=== PATIENT | male | born 1985 | race American Indian/Alaskan Native ===

== ENCOUNTER 2018-07-22 22:30 | Emergency (ER) | payer OTHER | END 2018-07-22 23:52 | disposition left against medical advice (07) | LOC: ED 22:30 ==

== ENCOUNTER 2018-07-23 10:11 | Emergency (ER) | payer OTHER ==
[2018-07-23 10:20] VITALS: BP 126/76
[2018-07-23] MEDS ORDERED: TORADOL IM ONE (10:57)
--- NOTE | 2018-07-23 11:01 | Emergency Department Report ---
- General Chief complaint: Skin/Abscess/Foreign Body Stated complaint: ABSCESS Time Seen by Provider: 07/23/18 10:44 Source: patient Mode of arrival: Ambulatory Limitations: No Limitations - History of Present Illness Initial comments: Patient is 33 years old male with no significant past medical history. Patient is presented to the ER complaining two melissa anal abscess started 3 days ago. Patient denied any fever, chills, nausea or vomiting. He stated one of the abscesses or to start draining. MD complaint: abscess/boil -: days(s) (3 days) Location: buttocks Severity: moderate Severity scale (0 -10): 6 Treatments Prior to Arrival: none - Related Data Allergies Allergy/AdvReac Type Severity Reaction Status Date / Time No Known Allergies Allergy Unverified 07/22/18 23:10 Abscess Boil HPI - HPI Chief Complaint: Skin/Abscess/Foreign Body Stated Complaint: ABSCESS Time Seen by Provider: 07/23/18 10:44 Allergies/Adverse Reactions: Allergies Allergy/AdvReac Type Severity Reaction Status Date / Time No Known Allergies Allergy Unverified 07/22/18 23:10 ED Review of Systems ROS: Stated complaint: ABSCESS Other details as noted in HPI Comment: All other systems reviewed and negative Constitutional: denies: chills, fever Respiratory: denies: cough, orthopnea, shortness of breath Cardiovascular: denies: chest pain Gastrointestinal: denies: abdominal pain, nausea, vomiting, diarrhea, constipation, hematemesis Musculoskeletal: denies: back pain Neurological: denies: headache, weakness, numbness ED Past Medical Hx - Past Medical History Previous Medical History?: Yes Additional medical history: perectum abscess - Surgical History Past Surgical History?: No - Social History Smoking Status: Current Some Day Smoker Substance Use Type: None ED Physical Exam - General Limitations: No Limitations General appearance: alert, in no apparent distress - Head Head exam: Present: atraumatic, normocephalic, normal inspection - Eye Eye exam: Present: normal appearance - ENT ENT exam: Present: normal exam, normal orophraynx, mucous membranes moist - Neck Neck exam: Present: normal inspection - Respiratory Respiratory exam: Present: normal lung sounds bilaterally - Cardiovascular Cardiovascular Exam: Present: regular rate, normal rhythm, normal heart sounds - GI/Abdominal GI/Abdominal exam: Present: soft. Absent: tenderness, guarding, rebound - Rectal Rectal exam: Present: normal inspection, normal rectal tone. Absent: tenderness - Back Exam Back exam: Present: normal inspection. Absent: CVA tenderness (R) - Neurological Exam Neurological exam: Present: alert, oriented X3, CN II-XII intact - Skin Skin exam: Present: other (two melissa-anal abscesses, non-fluctuant, one with mild greenish discharge.) ED Course Vital Signs 07/23/18 10:17 Temperature 97.9 F Pulse Rate 73 Respiratory 20 Rate Blood Pressure 126/76 O2 Sat by Pulse 100 Oximetry ED Medical Decision Making - Medical Decision Making Abscesses is not ready to be I&D yet. I advised patient to do sitz bath. I started the patient on Bactrim and advised him to follow-up with his primary care physician and to return to the ER if her symptoms have not improved. Critical care attestation.: If time is entered above; I have spent that time in minutes in the direct care of this critically ill patient, excluding procedure time. ED Disposition Clinical Impression: Melissa-rectal abscess Disposition: DC- TO HOME OR SELFCARE Is pt being admited?: No Condition: Stable Instructions: Abscess (ED) Referrals: PRIMARY CARE, [Primary Care Provider] - 3-5 Days
== END 2018-07-23 12:41 | disposition home or self-care (01) ==
LOC: ED 10:11
DX: K61.1 Rectal abscess (principal); F17.200 Nicotine dependence, unspecified, uncomplicated
CPT/HCPCS: 96372; 99282; J1885

== ENCOUNTER 2018-09-11 11:55 | Emergency (ER) | payer BC, OTHER ==
--- NOTE | 2018-09-11 12:09 | Emergency Department Report ---
Chief Complaint: Chest Pain Stated Complaint: CHEST PAIN/LFT SIDE PAIN Time Seen by Provider: 09/11/18 12:05 - HPI History of Present Illness: Pt is c/o left sided CP that began 3 days ago pt does lift heavy objects at work, has increased doing push ups certain movements make it worse (+) mild SOB no radiation, no N/V no recent long car/plane rides, no recent surgery, no immobilization (+) smoker, (+) marijuana VSS MSE complete MSE screening note: Focused history and physical exam performed. Due to findings the following was ordered: CXR, EKG ED Disposition for MSE Condition: Stable
[2018-09-11 12:54] LABS: Basophils # (Auto) 0.1 K/mm3 (0.0-0.1); Basophils % (Auto) 0.8 % (0.0-1.8); Eosinophils # (Auto) 0.1 K/mm3 (0.0-0.4); Eosinophils % (Auto) 1.8 % (0.0-4.3); Hematocrit 42.3 % (35.5-45.6); Hemoglobin 14.3 gm/dl (11.8-15.2); Lymphocytes # (Auto) 2.8 K/mm3 (1.2-5.4); Lymphocytes % (Auto) 42.1 % (13.4-35.0); Mean Corpuscular HGB Conc 34 % (32-34); Mean Corpuscular Volume 90 fl (84-94); Monocytes # (Auto) 0.7 K/mm3 (0.0-0.8); Platelet Count 320 K/mm3 (140-440); Red Blood Count 4.73 M/mm3 (3.65-5.03); Red Cell Distribution Width 13.8 % (13.2-15.2)
[2018-09-11 13:04] LABS: INR 0.9 (0.87-1.13)
[2018-09-11 13:05] LABS: Partial Thromboplastin Time 28.5 Sec. (24.2-36.6)
--- NOTE | 2018-09-11 13:53 | XRay Report ---
ROUTINE CHEST, TWO VIEWS: HISTORY: chest pain. The trachea, heart, mediastinal contour, lung arrieta and bony thorax are unremarkable. IMPRESSION: Unremarkable chest x-ray.
[2018-09-11 14:07] LABS: Alanine Aminotransferase 28 units/L (7-56); Albumin 4.6 g/dL (3.9-5); BUN/Creatinine Ratio 9; Blood Urea Nitrogen 10 mg/dL (9-20); Calcium 9.5 mg/dL (8.4-10.2); Hemolysis Index 16
--- NOTE | 2018-09-11 15:41 | Emergency Department Report ---
Minor Respiratory - HPI Chief Complaint: Chest Pain Stated Complaint: CHEST PAIN/LFT SIDE PAIN Time Seen by Provider: 09/11/18 12:05 Duration: 3 Days Pain Location: Chest Severity: mild Minor Respiratory: Yes Rhinorrhea, Yes Able to Tolerate Fluids, No Sore Throat, No Ear Pain, No Cough, No Sick Contacts, No Hemoptysis, No Chest Pain, No Shortness of Breath, No Fever Other History: Patient is a 33-year-old -[place] male who comes to the ER today complaining of pleuritic type chest pain. He states that the pain started 3 days ago. Patient is from [facility], he is working here in [place], and this weekend he went to [place]. It was while he is in [place] that this started. He noted his car covered in [place]. And since then hes had sinus congesion. ED Review of Systems ROS: Stated complaint: CHEST PAIN/LFT SIDE PAIN Other details as noted in HPI Comment: All other systems reviewed and negative Constitutional: denies: chills Eyes: denies: eye pain ENT: denies: throat pain Respiratory: see HPI Cardiovascular: as per HPI, chest pain. denies: palpitations Endocrine: denies: flushing Gastrointestinal: denies: nausea Genitourinary: denies: urgency Musculoskeletal: denies: back pain Skin: denies: rash Neurological: denies: headache Psychiatric: denies: depression Hematological/Lymphatic: denies: easy bleeding ED Past Medical Hx - Past Medical History Previous Medical History?: No Additional medical history: perectum abscess - Surgical History Past Surgical History?: No - Family History Family history: diabetes, hypertension - Social History Smoking Status: Current Some Day Smoker Substance Use Type: Alcohol, Marijuana - Medications Home Medications: Home Medications Medication Instructions Recorded Confirmed Last Taken Type Azithromycin [Zithromax Z-INÉS] 250 mg PO DAILY #6 tablet 09/11/18 Unknown Rx Cetirizine HCl [Zyrtec] 10 mg PO QDAY #30 tablet 09/11/18 Unknown Rx Fluticasone [Flonase] 1 spray NS QDAY #1 bottle 09/11/18 Unknown Rx predniSONE [Deltasone] 20 mg PO DAILY #5 tablet 09/11/18 Unknown Rx Minor Respiratory Exam - Exam General: Vital signs noted. No distress. Alert and acting appropriately. HEENT: Yes Moist Mucous Membranes, Yes Rhinorrhea, Yes Maxillary Tenderness, No Pharyngeal Erythema, No Pharyngeal Exudates, No Conjuctival Injection, No Frontal Tenderness Ear: Neither TM Bulge, Neither TM Erythema, Neither EAC Pain, Neither EAC Discharge Neck: Yes Supple, No Adenopathy Lungs: Yes Good Air Exchange, No Wheezes, No Ronchi, No Stridor, No Cough, No Labored Respirations, No Retractions, No Use of Accessory Muscles, No Other Ab normal Lung Sounds Heart: Yes Regular, No Murmur Abdomen: Yes Normal Bowel Sounds, No Tenderness, No Peritoneal Signs Skin: No Rash, No Edema Neurologic: Alert and oriented, no deficits. Musculoskeletal: Unremarkable. ED Course Vital Signs 09/11/18 12:05 Temperature 98.5 F Pulse Rate 94 H Respiratory 18 Rate Blood Pressure 132/84 O2 Sat by Pulse 100 Oximetry - Reevaluation(s) Reevaluation #1: 09/11/18 15:49 HR ON EXAM 80 ED Medical Decision Making - Lab Data Result diagrams: 09/11/18 12:39 09/11/18 12:39 - EKG Data -: EKG Interpreted by Ny EKG shows normal: sinus rhythm Rate: normal - EKG Data When compared to previous EKG there are: no significant change Interpretation: no acute changes - Radiology Data Radiology results: report reviewed, image reviewed NAP - Medical Decision Making See HPI Twelve-lead EKG shows no acute ST elevation or depression. It is normal. Chest x-ray is normal. Patient is afebrile. His heart rate is 80 on my exam. His oxygen saturation is 100% on room air. Labs have been noted troponin is negative. WBC is normal. Slight increase in lymphocytes or monocytes noted WILL treat the patient for sinusitis and pleuritic chest pain secondary to allergen/pollen exposure. Vital Signs 09/11/18 12:05 Temperature 98.5 F Pulse Rate 94 H Respiratory 18 Rate Blood Pressure 132/84 O2 Sat by Pulse 100 Oximetry Labs 09/11/18 09/11/18 09/11/18 12:39 12:39 12:39 WBC 6.7 RBC 4.73 Hgb 14.3 Hct 42.3 MCV 90 MCH 30 MCHC 34 RDW 13.8 Plt Count 320 Lymph % (Auto) 42.1 H Isabella % (Auto) 10.0 H Eos % (Auto) 1.8 Baso % (Auto) 0.8 Lymph # 2.8 Isabella # 0.7 Eos # 0.1 Baso # 0.1 Seg Neutrophils % 45.3 Seg Neutrophils # 3.0 PT 12.7 INR 0.90 APTT 28.5 Sodium 141 Potassium 3.9 Chloride 102.3 Carbon Dioxide 27 Anion Gap 16 BUN 10 Creatinine 1.1 Estimated GFR > 60 BUN/Creatinine Ratio 9 Glucose 103 H Calcium 9.5 Total Bilirubin 0.20 AST 26 ALT 28 Alkaline Phosphatase 84 Troponin T < 0.010 Total Protein 6.9 Albumin 4.6 Albumin/Globulin Ratio 2.0 09/11/18 14:41 WBC RBC Hgb Hct MCV MCH MCHC RDW Plt Count Lymph % (Auto) Isabella % (Auto) Eos % (Auto) Baso % (Auto) Lymph # Isabella # Eos # Baso # Seg Neutrophils % Seg Neutrophils # PT INR APTT Sodium Potassium Chloride Carbon Dioxide Anion Gap BUN Creatinine Estimated GFR BUN/Creatinine Ratio Glucose Calcium Total Bilirubin AST ALT Alkaline Phosphatase Troponin T < 0.010 Total Protein Albumin Albumin/Globulin Ratio DC HOME WITH RX AND FOLLOW UP AT PCP AMBULATORY AND NONTOXIC ON DC - Differential Diagnosis RO ACS/ RO PE/ RO INFECTION Critical care attestation.: If time is entered above; I have spent that time in minutes in the direct care of this critically ill patient, excluding procedure time. ED Disposition Clinical Impression: Sinusitis, Pleuritic chest pain Disposition: DC-01 TO HOME OR SELFCARE Is pt being admited?: No Does the pt Need Aspirin: No Condition: Stable Additional Instructions: Her 12-lead EKG, chest x-ray, were normal today. MEDS ORDERED TODAY FOLLOW UP WITH PCP HYDRATE WELL WITH WATER DIET TOLERATED ACTIVITY TOLERATED Referrals: VANITA GARIBAY MD [Primary Care Provider] - 3-5 Days Time of Disposition: 15:52
[2018-09-11] MEDS ORDERED: DELTASONE PO ONE (15:50)
[2018-09-11 16:09] VITALS: BP 130/81
== END 2018-09-11 16:06 | disposition home or self-care (01) ==
LOC: ED 11:55
DX: J32.9 Chronic sinusitis, unspecified (principal); R07.89 Other chest pain; F17.200 Nicotine dependence, unspecified, uncomplicated; F12.10 Cannabis abuse, uncomplicated
CPT/HCPCS: 36415; 71046; 80053; 84484; 85025; 85610; 85730; 93005; 93010; 99284; J7512